=== PATIENT | female | born 1960 | race African-American/Black ===

== ENCOUNTER 2018-01-04 10:01 | Emergency (ER) | payer BC ==
[~2018-01-04] VITALS: Ht 157.5 cm; Wt 97.5 kg
[2018-01-04 10:25] VITALS: BP 155/80
--- NOTE | 2018-01-04 12:12 | PHYS DOC ---
Past Medical History Past Medical History: Hypertension Past Surgical History: No Surgical History Alcohol Use: None Drug Use: None Adult General Chief Complaint Chief Complaint: LOWEREXTREMITY INJURY HPI HPI Patient is a 57 year old female who presents with right calf injury using stair stepper at local gym. Patient reports feeling sensation in right calf along with burning and swelling when stepping down. Since continued. Patient ports pain with ambulation. Symptoms rated moderate. No medications or therapy sticking prior to ED arrival. No other acute symptoms or complaints.[] Review of Systems Review of Systems Review symptoms as per history of present illness. All other systems were reviewed and found to be within normal limits, except as documented in this note. Allergies Allergies Allergies Coded Allergies Type Severity Reaction Last Updated Verified No Known Drug Allergies 01/04/18 No Physical Exam Physical Exam Constitutional: Well developed, well nourished, no acute distress, non-toxic appearance. [] HENT: Normocephalic, atraumatic, bilateral external ears normal, oropharynx moist, no oral exudates, nose normal. []] Extremities: Right calf pain, tenderness swelling, no bruising. Negative Gomez sign. [] Neurologic: Alert and oriented X 3, normal motor function, normal sensory function, no focal deficits noted. [] Psychologic: Affect normal, judgement normal, mood normal. [] Current Patient Data Vital Signs Vital Signs Date Time Temp Pulse Resp B/P (MAP) Pulse Ox O2 Delivery O2 Flow Rate FiO2 01/04/18 10:25 98.0 99 20 155/80 (105) 100 Room Air 98.0 EKG EKG [] Radiology/Procedures Radiology/Procedures [] Course & Med Decision Making Course & Med Decision Making Pertinent Labs and Imaging studies reviewed. (See chart for details) [] Dragon Disclaimer Dragon Disclaimer This electronic medical record was generated, in whole or in part, using a voice recognition dictation system. Departure Departure Impression: Primary Impression: Strain of calf muscle Disposition: 01 HOME, SELF-CARE Condition: GOOD Patient Instructions: Muscle Strain, [id number] Additional Instructions: Please rest, ice and elevate leg. Wear compression wrap and take ibuprofen for pain. Take tramadol as needed for additional relief. Follow up with your PCP for re-evaluation. ARUNA OSMAN DO Jan 04, 2018 12:12
== END 2018-01-04 11:19 | disposition home or self-care (01) ==
LOC: ER 10:01
DX: S86.911A Strain of unspecified muscle(s) and tendon(s) at lower leg level, right leg, initial encounter (principal); I10 Essential (primary) hypertension; X58.XXXA Exposure to other specified factors, initial encounter; Y93.89 Activity, other specified; Y92.39 Other specified sports and athletic area as the place of occurrence of the external cause; Y99.8 Other external cause status
CPT/HCPCS: 99283

== ENCOUNTER → 2018-04-14 | Outpatient (CLI) | payer BC ==
--- NOTE | 2018-04-14 15:05 | RAD ---
EXAM: Pelvic sonographic. HISTORY: Left ovarian cyst. TECHNIQUE: Transabdominal and transvaginal sonographic imaging of the pelvis was performed. COMPARISON: 12/28/2015. FINDINGS: The uterus measures 7.3 x 4.7 x 3.8 cm. There are 2 uterine fibroids measuring 2.3 cm within the left uterine fundus and 2.5 seen within the lower uterine segment. The endometrial stripe measures 1.2 mm in thickness. The right ovary is not seen. The left ovary is normal in size and demonstrates normal blood flow. There is a 3.2 cm left ovarian cyst. There is no pelvic free fluid. IMPRESSION: 1. 3.2 cm left ovarian cyst. There was a 2.9 cm cyst within the left ovary on the prior sonogram. Given the postmenopausal status of patient, continued follow-up is indicated. 2. Uterine fibroids. 2. Nonvisualization of the right ovary. Electronically signed by: Bina Turner MD (04/14/2018 3:01 PM) [id number]
== END | disposition home or self-care (01) ==
LOC: US 12:44
PROVIDERS: ATTEND Family Medicine
DX: N83.292 Other ovarian cyst, left side (principal); D25.1 Intramural leiomyoma of uterus
CPT/HCPCS: 76830; 76856